=== PATIENT | male | born 1995 | race African-American/Black ===

== ENCOUNTER 2021-04-19 02:32 | Emergency (ER) | payer OTHER ==
[2021-04-19 02:40] VITALS: BP 138/81; PULSE 66; TEMP 98.8; BMI 27.9
== END 2021-04-19 03:12 | disposition home or self-care (01) ==
LOC: FER 02:32
DX: S80.02XA Contusion of left knee, initial encounter (principal); Z77.21 Contact with and (suspected) exposure to potentially hazardous body fluids
CPT/HCPCS: 99283-25

== ENCOUNTER 2021-12-10 01:23 | Emergency (ER) | payer OTHER ==
[2021-12-10 01:29] VITALS: BMI 27.9
[2021-12-10] MEDS ORDERED: IBUPROFEN 600 MG TABLET (FP) PO ONE ×2 (01:34→01:40)
[2021-12-10 01:36] VITALS: BP 136/78; PULSE 67
[2021-12-10 01:54] VITALS: TEMP 99.4
== END 2021-12-10 01:53 | disposition home or self-care (01) ==
LOC: FER 01:23
DX: M25.531 Pain in right wrist (principal); M25.532 Pain in left wrist; V49.40XA Driver injured in collision with unspecified motor vehicles in traffic accident, initial encounter
CPT/HCPCS: 99283-25

== ENCOUNTER 2022-02-08 01:36 | Emergency (ER) | payer OTHER ==
[2022-02-08 01:41] VITALS: BP 145/81; PULSE 53; TEMP 97.8; BMI 28.7
== END 2022-02-08 01:49 | disposition home or self-care (01) ==
LOC: FER 01:36
DX: S60.412A Abrasion of right middle finger, initial encounter (principal); W25.XXXA Contact with sharp glass, initial encounter
CPT/HCPCS: 99281-25

== ENCOUNTER 2022-04-10 05:29 | Emergency (ER) | payer OTHER ==
[2022-04-10 05:47] VITALS: BP 125/80; PULSE 53; TEMP 98.7; BMI 28.7
== END 2022-04-10 05:51 | disposition home or self-care (01) ==
LOC: FER 05:29
DX: S80.02XA Contusion of left knee, initial encounter (principal); S40.811A Abrasion of right upper arm, initial encounter
CPT/HCPCS: 99283-25

== ENCOUNTER 2022-08-13 01:49 | Emergency (ER) | payer OTHER ==
[2022-08-13 02:02] VITALS: BP 133/77; PULSE 66; RESP 16; TEMP 98.6; BMI 28.7
== END 2022-08-13 02:15 | disposition home or self-care (01) ==
LOC: FER 01:49
DX: S61.411A Laceration without foreign body of right hand, initial encounter (principal); W25.XXXA Contact with sharp glass, initial encounter
CPT/HCPCS: 99281-25

== ENCOUNTER 2022-09-12 04:44 | Emergency (ER) | payer OTHER ==
[2022-09-12 05:01] VITALS: BP 121/67; PULSE 60; RESP 16; TEMP 97.9; BMI 28.7
[2022-09-12] MEDS ORDERED: ACETAMINOPHEN 325 MG TABLET (FP) PO ONE (05:06)
[2022-09-12] MEDS ORDERED: IBUPROFEN 400 MG TABLET (FP) PO ONE ×2 (05:06→05:08)
[2022-09-12] MEDS ORDERED: ACETAMINOPHEN 325 MG TABLET (FP) ONE (05:08)
== END 2022-09-12 06:23 | disposition home or self-care (01) ==
LOC: FER 04:44
DX: M25.561 Pain in right knee (principal); M25.562 Pain in left knee; V49.50XA Passenger injured in collision with unspecified motor vehicles in traffic accident, initial encounter; Y92.9 Unspecified place or not applicable
CPT/HCPCS: 73560-TC-LT-FY; 73560-TC-RT-FY; 99284-25

== ENCOUNTER 2023-03-03 02:22 | Emergency (ER) | payer OTHER ==
[2023-03-03 02:30] VITALS: BP 128/85; PULSE 68; RESP 18; TEMP 98.1; BMI 28.4
[2023-03-03] MEDS ORDERED: IBUPROFEN 400 MG TABLET (FP) PO ONE ×2 (02:46→02:49)
== END 2023-03-03 03:21 | disposition home or self-care (01) ==
LOC: FER 02:22
DX: M79.661 Pain in right lower leg (principal); Y04.8XXA Assault by other bodily force, initial encounter; Y99.0 Civilian activity done for income or pay
CPT/HCPCS: 99282-25

== ENCOUNTER 2023-03-31 02:05 | Emergency (ER) | payer OTHER ==
[2023-03-31 02:17] VITALS: BP 138/74; PULSE 68; RESP 14; TEMP 98.2; BMI 32.3
[2023-03-31] MEDS ORDERED: IBUPROFEN 600 MG TABLET (FP) PO ONE ×2 (03:04→03:10)
== END 2023-03-31 03:05 | disposition home or self-care (01) ==
LOC: FER 02:05
DX: S03.42XA Sprain of jaw, left side, initial encounter (principal); Y04.8XXA Assault by other bodily force, initial encounter; Y35.811A Legal intervention involving manhandling, law enforcement official injured, initial encounter
CPT/HCPCS: 70100-TC-FY; 99283-25

== ENCOUNTER 2023-04-27 16:10 | Emergency (ER) | payer OTHER ==
[2023-04-27 16:47] VITALS: BP 122/72; PULSE 76; RESP 18; TEMP 98.3; BMI 27.9
[2023-04-27] MEDS ORDERED: IBUPROFEN 400 MG TABLET (FP) PO ONE ×2 (18:16→18:18)
== END 2023-04-27 19:53 | disposition home or self-care (01) ==
LOC: FER 16:10
DX: M25.562 Pain in left knee (principal); S83.92XA Sprain of unspecified site of left knee, initial encounter; X58.XXXA Exposure to other specified factors, initial encounter
CPT/HCPCS: 73564-TC-LT-FY; 99283-25

== ENCOUNTER 2023-05-11 04:04 | Day surgery (SDC) | payer OTHER ==
[2023-05-09 12:18] VITALS: BMI 28.7
[2023-05-11] MEDS ORDERED: LIDOCAINE HCL/PF 2% SDV 5ML VIAL ONE (11:03)
[2023-05-11] MEDS ORDERED: ONDANSETRON 4 MG/2 ML VIAL ONE ×2 (11:04→18:46)
[2023-05-11] MEDS ORDERED: MIDAZOLAM HCL 2 MG/2 ML SINGLE DOSE VIAL ONE ×2 (11:52→11:53)
[2023-05-11] MEDS ORDERED: PROPOFOL 40 ML ONE (11:53)
[2023-05-11] MEDS ORDERED: ROPIVACAINE HCL 0.5% 30ML VIAL ONE (12:27)
[2023-05-11] MEDS ORDERED: ONDANSETRON 4 MG/2 ML VIAL IVPUSH PRN (12:30)
[2023-05-11] MEDS ORDERED: LACTATED RINGERS SOLUTION 1,000 ML IV SCH (12:30)
[2023-05-11] MEDS ORDERED: ceFAZolin SODIUM 1 GM VIAL ONE (13:48)
[2023-05-11] MEDS ORDERED: DEXAMETHASONE SOD PHOSPHATE 4 MG/1 ML VIAL ONE (13:49)
[2023-05-11] MEDS ORDERED: ceFAZolin SODIUM 1 GM VIAL IVPB ONE (13:50)
[2023-05-11] MEDS ORDERED: ACETAMINOPHEN 1000 MG/100 ML BAG IVPB ONE (15:31)
[2023-05-11] MEDS ORDERED: KETOROLAC TROMETHAMINE 30 MG/1 ML VIAL IVPUSH ONE (15:32)
[2023-05-11] MEDS ORDERED: oxyCODONE HCL 5 MG TABLET PO PRN ×2 (15:33)
[2023-05-11] MEDS ORDERED: HYDROmorphone HCl 2 MG/ML VIAL ONE (16:14)
[2023-05-11] MEDS: HYDROmorphone HCl 2 MG/ML VIAL IVPUSH PRN ×2 (16:15→16:30)
[2023-05-11] MEDS ORDERED: oxyCODONE HCL 5 MG TABLET ONE (17:22)
[2023-05-11] MEDS ORDERED: ONDANSETRON 4 MG/2 ML VIAL IVPUSH ONE (18:49)
[2023-05-11 19:02] VITALS: RESP 20; TEMP 97.1
[2023-05-11 20:13] VITALS: BP 148/78; PULSE 75
== END 2023-05-11 20:00 | disposition home or self-care (01) ==
LOC: JASU-SURG 04:04
PROVIDERS: ATTEND Orthopaedic Surgery
PROC: 0MQP4ZZ Repair Left Knee Bursa and Ligament, Percutaneous Endoscopic Approach (ICD-10-PCS; principal; 2023-05-11 14:30)
DX: S83.512A Sprain of anterior cruciate ligament of left knee, initial encounter (principal); S83.212A Bucket-handle tear of medial meniscus, current injury, left knee, initial encounter; X58.XXXA Exposure to other specified factors, initial encounter; Y93.9 Activity, unspecified; Y92.9 Unspecified place or not applicable
CPT/HCPCS: 29881; 29888; C1713; 94760

== ENCOUNTER 2024-06-09 05:11 | Emergency (ER) | payer OTHER ==
[2024-06-09 05:16] VITALS: BP 125/82; PULSE 59; RESP 17; TEMP 98.9; BMI 30.1
[2024-06-09] MEDS ORDERED: IBUPROFEN 600 MG TABLET (FP) PO ONE (05:54)
[2024-06-09] MEDS ORDERED: LIDOCAINE 5% TOPICAL PATCH ONE (05:55)
[2024-06-09] MEDS ORDERED: CYCLOBENZAPRINE HCL 5 MG TABLET ONE (05:55)
[2024-06-09] MEDS: IBUPROFEN 600 MG TABLET (FP) PO ONE (06:03)
[2024-06-09] MEDS: CYCLOBENZAPRINE HCL 10 MG TABLET (FP) PO ONE (06:03)
[2024-06-09] MEDS: LIDOCAINE 5% TOPICAL PATCH TP ONE (06:03)
[2024-06-09] MEDS ORDERED: LIDOCAINE PATCH REMOVAL MC SCH (22:00)
== END 2024-06-09 06:35 | disposition home or self-care (01) ==
LOC: FER 05:11
DX: M62.830 Muscle spasm of back (principal); Y35.811A Legal intervention involving manhandling, law enforcement official injured, initial encounter
CPT/HCPCS: 99283-25

== ENCOUNTER 2024-09-10 02:58 | Emergency (ER) | payer OTHER ==
[2024-09-10 03:09] VITALS: BP 165/78; PULSE 63; RESP 18; TEMP 98.6; BMI 30.1
== END 2024-09-10 03:35 | disposition home or self-care (01) ==
LOC: FER 02:58
DX: S80.11XA Contusion of right lower leg, initial encounter (principal); Y35.811A Legal intervention involving manhandling, law enforcement official injured, initial encounter
CPT/HCPCS: 99283-25